=== PATIENT | female | born 1960 | race Asian ===

== ENCOUNTER 2017-05-31 14:05 | Emergency (ER) | payer SELFPAY ==
[~2017-05-31] VITALS: Ht 142.2 cm; Wt 51.0 kg
[2017-05-31] MEDS ORDERED: NEURONTIN100 MG PO (15:47)
[2017-05-31 16:03] VITALS: BP 130/82
== END 2017-05-31 16:04 | disposition home or self-care (01) ==
LOC: EME 14:05
DX: M54.12 Radiculopathy, cervical region (principal)
CPT/HCPCS: 99281; 99283